=== PATIENT | male | born 1990 | race Caucasian/White ===

== ENCOUNTER 2018-03-14 17:46 | Emergency (ER) | payer OTHER, SELFPAY ==
[2018-03-14 17:48] VITALS: PULSE 83; RESP 18; TEMP 36.8; O2SAT 98; BMI 29.0
[2018-03-14 17:52] VITALS: BP 142/101
--- NOTE | 2018-03-14 17:56 | ED.VISSUMM ---
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 On the right home he started feeling itchy. He then had some throat swelling and pain with swallowing. He was red in the face. He got home took 2 Benadryl and called the director of acquisition marketing office who told him to come here for evaluation. He denies any shortness of breath. He states that he has been increasing his dose of his allergy shot each week. Physical Examination: Vital signs reviewed. HEENT exam is normal. He has no uvular or tongue swelling. He is handling his secretions. Heart is regular rate and rhythm. Lungs are clear. Abdomen soft. Extremities reveal no edema. Skin exam reveals no hives. He has no other rashes. His his face appears a little bit red. His neurologic exam is intact and normal Test Results: None performed Emergency Department Course and Treatment: Patient was given Solu-Medrol, Pepcid and Benadryl. He feels much better. He wishes to go home. He will continue Benadryl at home. He will call his director of acquisition marketing tomorrow for follow-up appointment Treatment Plan: [] Disposition: Discharge Impression: Allergic reaction This note was generated with [employer] dictation software. It may contain incorrect words, spelling, and punctuation that were not noted in review of the chart prior to signing ED Disposition - Plan for ED Patient: Chief Complaint: Allergic Reaction Referrals: Harmeet Osuna MD [Primary Care Provider] -
[2018-03-14] MEDS: MethylPREDNISolone 125 MG/2 ML Vial IV (18:07)
[2018-03-14] MEDS: DiphenhydrAMINE 50 MG/ML Syringe 25 MG IV (18:07)
--- NOTE | 2018-03-14 18:47 | ED.DEP ---
ED Disposition - Plan for ED Patient: Disposition: Home or Assisted Living Chief Complaint: Allergic Reaction Instructions: ED Drug React Allergic Referrals: Harmeet Osuna MD [Primary Care Provider] -
[2018-03-14 19:11] VITALS: BP 143/92; PULSE 75; RESP 20; O2SAT 98
--- NOTE | 2018-03-14 19:12 | ED.RN ---
REVIEWED D/C INSTRUCTIONS, FOLLOW UP CARE, AND S/S THAT WOULD WARRANT A RETURN TO THE ED WITH PT. PT VERBALIZED AN UNDERSTANDING AND DENIES FURTHER QUESTIONS FOR THIS RN. PT SKIN P/W/D, RESP EVEN AND UNLABORED, PT A&O X 3, NO DISTRESS NOTED. PT AMBULATED OUT OF ED, GAIT STEADY.
== END 2018-03-14 19:13 | disposition home or self-care (01) ==
PROVIDERS: Emergency Provider Emergency Medicine; Family Provider Family Medicine; PCP Family Medicine
DX: L29.9 Pruritus, unspecified (principal); L53.9 Erythematous condition, unspecified; R07.0 Pain in throat; T50.905A Adverse effect of unspecified drugs, medicaments and biological substances, initial encounter; Y92.531 Health care provider office as the place of occurrence of the external cause
CPT/HCPCS: 96374; 96375; 99283; A4216; J3490